=== PATIENT | female | born 1960 | race Caucasian/White ===

== ENCOUNTER 2018-07-20 08:16 | Outpatient (CLI) | payer MEDICAID | END 2018-07-20 08:17 | disposition home or self-care (01) | LOC: CARDIO 08:16 ==

== ENCOUNTER 2018-07-27 08:25 | Outpatient (CLI) | payer MEDICAID | END 2018-07-27 08:26 | disposition home or self-care (01) | LOC: RAD 08:25 ==

== ENCOUNTER 2018-08-28 06:47 | Day surgery (SDC) | payer MEDICAID | END 2018-08-28 17:15 | disposition home or self-care (01) | LOC: CATH 06:47 ==